=== PATIENT | female | born 1950 | race Caucasian/White ===

== ENCOUNTER 2022-05-19 13:57 | Emergency (ER) | payer OTHER, MEDICAID ==
[~2022-05-19] VITALS: Ht 165.1 cm; Wt 97.1 kg
[2022-05-19 14:03] VITALS: BP 105/66
[2022-05-19 14:05] VITALS: BP 105/66
--- NOTE | 2022-05-19 14:50 | NUR ---
Patient ambulated to bed 6.
--- NOTE | 2022-05-19 15:00 | NUR ---
71 y/o female bib self with c/o high blood sugar and dizziness x today. Per patient, her blood sugar in the AM was 340. 4 hours later her blood sugar was 411. At triage her blood sugar was 349. Patient is currently on Metformin 500 mg PO daily. Denies fever, chills or SOB. Medical History: DM NKDA
--- NOTE | 2022-05-19 15:15 | NUR ---
Patient discharged with v/s stable. Written and verbal after care instructions given. Patient verbalized understanding. Ambulatory with steady gait. All questions addressed prior to discharge. Advised to follow up with PMD.
--- NOTE | 2022-05-19 15:17 | NUR ---
The patient's care was reviewed and supervised by Tha Ferrer RN.
== END 2022-05-19 15:15 | disposition home or self-care (01) ==
LOC: MED 13:57 → EDBD 13:57 → MED 15:15
DX: E11.65 Type 2 diabetes mellitus with hyperglycemia (principal); I10 Essential (primary) hypertension; I25.10 Atherosclerotic heart disease of native coronary artery without angina pectoris; Z79.4 Long term (current) use of insulin; Z79.899 Other long term (current) drug therapy
CPT/HCPCS: 81002; 99282